=== PATIENT | female | born 2000 | race Caucasian/White ===

== ENCOUNTER 2019-06-30 02:53 | Emergency (ER) | payer BC ==
--- NOTE | 2019-06-30 03:04 | ED ---
Substance Abuse/Use - HPI Summary HPI Summary: This pt is a 19 Y/O F brought in by EMS to [facility] for ETOH intoxication. THIS PT IS A LEVEL 5 CAVEAT DUE TO HER LEVEL OF INTOXICATION. SHE IS UNABLE TO PROVIDE ANY INFORMATION ABOUT HOW SHE GOT TO [facility]. - History Of Current Complaint Chief Complaint: EDSubstanceAbuse Stated Complaint: ETOH PER EMS Time Seen by Provider: 06/30/19 03:02 Hx Obtained From: EMS Hx From Patient Unobtainable Due To: Extremis - PT IS A LEVEL 5 CAVEAT DUE TO HER LEVEL OF ALCOHOL INTOXICATION. Related Hx: Drug/Alcohol Last Used @ - TODAY - Allergies/Home Medications Allergies/Adverse Reactions: Allergies Allergy/AdvReac Type Severity Reaction Status Date / Time No Known Allergies Allergy Verified 06/30/19 02:57 PMH/Surg Hx/FS Hx/Imm Hx Previously Healthy: Yes - PT IS A LEVEL 5 CAVEAT DUE TO HER LEVEL OF ALCOHOL INTOXICATION. Infectious Disease History: No Infectious Disease History: Denies: Traveled Outside the [place] in Last 30 Days Review of Systems - ROS Summary Review of Systems Summary: AN ROS IS UNOBTAINABLE DUE TO THE FACT THAT THE PT IS A LEVEL 5 CAVEAT DUE TO HER LEVEL OF ALCOHOL INTOXICATION. All Other Systems Reviewed And Are Negative: No Physical Exam - Summary Physical Exam Summary: General: Well-developed, Well-nourished female. No acute distress. Sleepy. HEENT: Normocephalic, Atraumatic. Eyes: Conjuctiva normal, PERRL. Ears: TMs within normal limits. Nares: (-) discharge, (-) erythema. Oropharynx: Clear, mucous membranes moist, (-) exudates. Neck: Soft, FROM, (-) lymphadenopathy, (-) thyromegaly, (-) JVD. Cardiovascular: Normal sinus rhythm, (-) murmur. Lungs: Clear to auscultation bilaterally (-) wheezes, (-) rales, (-) rhonchi. Abdomen: Soft, non-tender, non-distended, (-) organomegaly, normal bowel sounds. Back: (-) CVA tenderness Extremities: No edema. Skin: Warm, dry, (-) rash. Neuro: Alert and oriented x3, no focal deficits. Psychiatric: Mood normal, affect normal. Triage Information Reviewed: Yes Vital Signs On Initial Exam: Initial Vitals Temp Pulse Resp BP Pulse Ox 96.8 F 93 18 127/93 100 06/30/19 02:55 06/30/19 02:55 06/30/19 02:55 06/30/19 02:55 06/30/19 02:55 Vital Signs Reviewed: Yes Diagnostics - Vital Signs Vital Signs Temp Pulse Resp BP Pulse Ox 06/30/19 02:55 96.8 F 93 18 127/93 100 - Laboratory Result Diagrams: 06/30/19 04:21 06/30/19 04:21 Lab Statement: Any lab studies that have been ordered have been reviewed, and results considered in the medical decision making process. Course/Dx - Course Course Of Treatment: This pt is a 19 Y/O F brought in by EMS to [facility] for ETOH intoxication. THIS PT IS A LEVEL 5 CAVEAT DUE TO HER LEVEL OF INTOXICATION. SHE IS UNABLE TO PROVIDE ANY INFORMATION ABOUT HOW SHE GOT TO [facility]. Her PE found that she is sleepy. She will be signed out to Dr. Gonzalez at shift change 0700 06/30/19 pending her sobriety. - Diagnoses Provider Diagnoses: Alcohol intoxication Discharge ED - Sign-Out/Discharge Documenting (check all that apply): Sign-Out Patient Signing out patient TO: Irma Gonzalez Patient Received Moderate/Deep Sedation with Procedure: No - Discharge Plan Condition: Stable - Billing Disposition and Condition Condition: STABLE - Attestation Statements Document Initiated by Keeleyibe: Yes Documenting Scribe: Kiel Lara Provider For Whom Scribe is Documenting (Include Credential): Ana Pineda MD Scribe Attestation: Kiel Galaviz, scribed for Ana Pineda MD on 06/30/19 at 0652. Scribe Documentation Reviewed: Yes Provider Attestation: The documentation as recorded by the Kiel lopez accurately reflects the service I personally performed and the decisions made by me, Ana Pineda MD Status of Scribe Document: Viewed
[2019-06-30 05:26] LABS: Alcohol 167 mg/dL (<10)
[2019-06-30] MEDS ORDERED: NS 0.9% 1000 ML** 1,000 ML IV ONE (05:27)
[2019-06-30] MEDS ORDERED: Ketorolac INJ* 30 MG/ML 1 ML VIAL IV PUSH ONE (05:28)
[2019-06-30] MEDS ORDERED: Ondansetron INJ* 2 MG/ML VIAL IV ONE (05:29)
[2019-06-30 05:50] LABS: ABS Lymphocytes 1.1 10^3/ul (1.0-4.8); ABS Monocytes 0.3 10^3/ul (0-0.8); ABS Neutrophils 3.3 10^3/ul (1.5-7.7); Eosinophil % 0.5 %; Hematocrit 40 % (35-47); Hemoglobin 13.2 g/dL (12.0-16.0); Lymphocyte % 22.8 %; Mean Corpuscular HGB Conc 33 g/dL (31-36); Mean Corpuscular Hemoglobin 30 pg (27-31); Mean Corpuscular Volume 90 fL (80-97); Mean Platelet Volume 8.7 fL (7.4-10.4); Platelet Count 242 10^3/uL (150-450); Red Blood Count 4.41 10^6 /uL (3.70-4.87); Red Cell Distribution Width 13 % (10-15); White Blood Count 4.7 10^3/uL (3.5-10.8)
[2019-06-30 06:01] LABS: ALT 8 U/L (7-52); AST 18 U/L (13-39); Albumin 4.2 g/dL (3.2-5.2); Albumin/Globulin Ratio 1.6 (1-3); Alkaline Phosphatase 73 U/L (34-104); Anion Gap 10 mmol/L (2-11); BUN/Creatinine Ratio 10.4 (8-20); Blood Urea Nitrogen 7 mg/dL (6-24); CO2 Carbon Dioxide 24 mmol/L (22-32); Calcium 8.7 mg/dL (8.6-10.3); Chloride 105 mmol/L (101-111); EGFR African American 134.4 (>60); EGFR Non-African American 111.1 (>60); Globulin 2.6 g/dL (2-4); Glucose 107 mg/dL (70-100); Potassium 3.8 mmol/L (3.5-5.0); Sodium 139 mmol/L (135-145); Total Protein 6.8 g/dL (6.4-8.9)
[2019-06-30 06:07] LABS: HCG Pregnancy < 0.60 mIU/mL
[2019-06-30 06:11] LABS: Acetaminophen < 15 mcg/mL; Salicylate < 2.50 mg/dL (<30)
--- NOTE | 2019-06-30 07:26 | ED ---
Progress - Progress Note Progress Note: Patient was signed out to Dr. Gonzalez by Dr. Pineda at shift change 0700 pending her sobriety. Physician checks on patient upon shift change. Patient will be discharged. Course/Dx - Course Course Of Treatment: Patient was signed out to Dr. Gonzalez by Dr. Pineda at shift change 0700 06/30/19 pending her sobriety. Physician checks on patient upon shift change. Patient will be discharged. - Diagnoses Provider Diagnoses: Alcohol intoxication Discharge ED - Sign-Out/Discharge Documenting (check all that apply): Patient Departure - discharge Patient Received Moderate/Deep Sedation with Procedure: No - Discharge Plan Condition: Stable Disposition: HOME Patient Education Materials: Alcohol Intoxication (ED) Additional Instructions: You were seen in the emergency department for alcohol intoxication. Do not drink and drive please. If any studies were not completed at the time of discharge you will be called with the relevant results. Please follow up with your primary care doctor in next 2-3 days and return to emergency department for worsening or concerning symptoms. It was a pleasure taking care of you today. - Attestation Statements Document Initiated by Scribe: Yes Documenting Scribe: Olga Mullins Provider For Whom Keeleyibpeg is Documenting (Include Credential): Dr. Irma Gonzalez MD Scribe Attestation: IOlga, scribed for Dr. Irma Gonzalez MD on 06/30/19 at 0733. Status of Scribe Document: Ready
[2019-06-30 07:44] VITALS: BP 100/54
== END 2019-06-30 07:30 | disposition home or self-care (01) ==
LOC: ED 02:53
DX: F10.129 Alcohol abuse with intoxication, unspecified (principal)
CPT/HCPCS: 36415; 80053; 80320; 80329; 84702; 85025; 99282; G0480; J1885; J2405